=== PATIENT | male | born 1970 | race Caucasian/White ===

== ENCOUNTER 2022-04-23 07:44 | Emergency (ER) | payer BC, OTHER ==
[~2022-04-23] VITALS: Ht 170.2 cm; Wt 72.6 kg
[2022-04-23 07:45] VITALS: BP 136/87
--- NOTE | 2022-04-23 08:00 | NUR ---
52 y/o male bib [facility], pt c/o neck pain that he states started 6 months ago. denies any new fall, trauma or injury to area. Pupils equal and reactive to light bilaterally. No facial droop noted. No smile deficit noted. Speech normal for patient. Patient is alert and oriented to person, place, time and event. Bilateral hand orange grower equal. Bilateral foot push equal.
[2022-04-23] MEDS ORDERED: ACETAMINOPHEN EXTRA STRENGTH 500 MG TAB PO ONE (08:25)
[2022-04-23 08:37] VITALS: BP 136/87
--- NOTE | 2022-04-23 08:38 | NUR ---
Patient discharged with v/s stable. Written and verbal after care instructions given and explained. Patient verbalized understanding. with Police in custody. All questions addressed prior to discharge. Advised to follow up with PMD.
== END 2022-04-23 08:37 ==
LOC: MED 07:44
DX: S16.1XXA Strain of muscle, fascia and tendon at neck level, initial encounter (principal); F17.200 Nicotine dependence, unspecified, uncomplicated; X58.XXXA Exposure to other specified factors, initial encounter; Y93.89 Activity, other specified; Y92.89 Other specified places as the place of occurrence of the external cause; Y99.8 Other external cause status
CPT/HCPCS: 99283